=== PATIENT | male | born 1970 | race Caucasian/White ===

== ENCOUNTER 2018-06-09 00:36 | Inpatient (IN) | payer OTHER ==
[~2018-06-09] VITALS: Ht 165.1 cm; Wt 90.7 kg
[2018-06-09 00:38] VITALS: Ht 165.1 cm; Wt 90.7 kg
[2018-06-09 01:25] LABS: BASOPHIL % 0.4 % (0-2); PLATELET COUNT 222 x10^3mcL (130-400); RED CELL DISTRIBUTION WIDTH 13.5 % (11.5-14.5)
[2018-06-09 01:35] LABS: CALCIUM 9.1 mg/dL (8.5-10.1); CARBON DIOXIDE 31.6 mmol/L (21-32); CHLORIDE SERUM 101 mmol/L (98-107); CREATININE SERUM 0.9 mg/dL (0.7-1.3); GFR1 > 60 mL/min; GLUCOSE SERUM 126 mg/dL (74-106); POTASSIUM SERUM 3.5 mmol/L (3.5-5.1); SODIUM SERUM 140 mmol/L (136-145)
[2018-06-09 01:40] LABS: ALBUMIN 4.1 g/dL (3.4-5.0); ALKALINE PHOSPHATASE 66 U/L (46-116); ALT/SGPT 38 U/L (16-63); AST/SGOT 24 U/L (15-37); BILIRUBIN TOTAL 1.09 mg/dL (0.20-1.00); LIPASE 244 IU/L (73-393); TOTAL PROTEIN, SERUM 8.2 g/dL (6.4-8.2)
[2018-06-09 03:58] VITALS: BP 126/76
[2018-06-09 04:07] LABS: CHOLESTEROL/HDL RATIO 4.4; MAGNESIUM 2.3 mg/dL (1.8-2.4); PHOSPHOROUS 3.8 mg/dL (2.5-4.9)
[2018-06-09 04:13] LABS: T3 TOTAL 1.15 ng/mL
[2018-06-09 04:15] LABS: FREE T4 1.05 ng/dL (0.76-1.46); FREE THYROXINE INDEX 2.6 ug/dL (1.4-4.5); T4(THYROXINE) 8.2 ug/dL (4.7-13.3)
[2018-06-09 04:23] LABS: microscopic required? NO
[2018-06-09 05:00] LABS: UA SPECIFIC GRAVITY <=1.005 (1.005-1.035); urine erythrocyte NEGATIVE (NEGATIVE)
[2018-06-09 05:19] LABS: AMPHETAMINE QUAL UR NONE DETECTED (See below)
[2018-06-09 10:00] VITALS: BP 104/69
[2018-06-09 16:50] VITALS: BP 127/81
[2018-06-09 20:27] VITALS: BP 127/78
[2018-06-10 05:37] VITALS: BP 104/59
[2018-06-10 10:16] VITALS: BP 126/86
[2018-06-10 10:48] LABS: CALCIUM 8.5 mg/dL (8.5-10.1); CHLORIDE SERUM 102 mmol/L (98-107); CREATININE SERUM 0.8 mg/dL (0.7-1.3); GFR1 > 60 mL/min; GLUCOSE SERUM 107 mg/dL (74-106); POTASSIUM SERUM 3.6 mmol/L (3.5-5.1); SODIUM SERUM 137 mmol/L (136-145)
[2018-06-10 10:51] LABS: BASOPHIL % 0.3 % (0-2); PLATELET COUNT 188 x10^3mcL (130-400); RED CELL DISTRIBUTION WIDTH 13.4 % (11.5-14.5)
[2018-06-10 15:30] VITALS: BP 126/86
== END 2018-06-10 16:38 | disposition home or self-care (01) | DRG 247 ==
LOC: ED 00:36 → MU 03:09
PROVIDERS: Emergency Medicine; Family Medicine; Internal Medicine
DX: K56.609 Unspecified intestinal obstruction, unspecified as to partial versus complete obstruction (principal); D72.829 Elevated white blood cell count, unspecified; E78.5 Hyperlipidemia, unspecified; E66.9 Obesity, unspecified; N20.0 Calculus of kidney; Z68.33 Body mass index [BMI] 33.0-33.9, adult; Z71.3 Dietary counseling and surveillance
CPT/HCPCS: 83880; 84439; A9698; J2405; J7030; Q0092; Q9967

== ENCOUNTER 2018-12-18 16:03 | Emergency (ER) | payer OTHER ==
[~2018-12-18] VITALS: Ht 170.2 cm; Wt 86.2 kg
[2018-12-18 16:42] VITALS: Ht 170.2 cm; Wt 86.2 kg
[2018-12-18 18:18] VITALS: BP 111/72
== END 2018-12-18 18:18 | disposition home or self-care (01) ==
LOC: ED 16:03
DX: T15.01XA Foreign body in cornea, right eye, initial encounter (principal); W45.8XXA Other foreign body or object entering through skin, initial encounter; Y93.89 Activity, other specified; Y92.89 Other specified places as the place of occurrence of the external cause; Y99.8 Other external cause status